=== PATIENT | male | born 1980 | race Caucasian/White ===

== ENCOUNTER 2022-02-20 09:37 | Outpatient (CLI) | payer MEDICAID, SELFPAY ==
[2022-02-20 13:48] LABS: Potassium* 5.2 mmol/L (3.6-5.1); Sodium* 140 mmol/L (135-149)
[2022-02-20 13:51] LABS: Calcium* 9.6 mg/dL (8.4-10.6); Carbon Dioxide* 32 mmol/L (20-32); Cholesterol* 140 mg/dL (90-199); Creatinine* 0.7 mg/dL (0.5-1.5); Estimated Glomerular Filt Rate 117 ml/min; Glucose* 103 mg/dL (60-115); Triglycerides* 54 mg/dL (40-149)
[2022-02-20 13:52] LABS: HDL Cholesterol* 68 mg/dL (>=40); LDL Cholesterol Calculated 61 mg/dL (<100)
[2022-02-20 15:28] LABS: HIV 1/2/P24 Combo Screen* Negative (Negative)
[2022-02-20 16:00] LABS: Chloride* 103 mmol/L (96-114)
[2022-02-20 16:03] LABS: Blood Urea Nitrogen* 12 mg/dL (5-24)
== END 2022-02-20 09:38 | disposition home or self-care (01) ==
PROVIDERS: PCP Family Medicine; Visit Provider Family Medicine
DX: Z00.00 Encounter for general adult medical examination without abnormal findings (principal); F98.8 Other specified behavioral and emotional disorders with onset usually occurring in childhood and adolescence; Z11.3 Encounter for screening for infections with a predominantly sexual mode of transmission
CPT/HCPCS: 80048; 80061; 86703

== ENCOUNTER 2023-11-05 07:32 | Outpatient (CLI) | payer MEDICAID, SELFPAY ==
--- NOTE | 2023-11-05 09:09 | W.ANESCHARGE ---
Anesthesia Charges Start Date/Time Anesthesia Start Date: 11/05/23 Anesthesia Start Time: 08:40 Stop Date/Time Anesthesia Stop Date: 11/05/23 Anesthesia Stop Time: 09:07
--- NOTE | 2023-11-05 11:04 | W.ANESCHARGE ---
Anesthesia Charges Start Date/Time Anesthesia Start Date: 11/05/23 Anesthesia Start Time: 08:40 Stop Date/Time Anesthesia Stop Date: 11/05/23 Anesthesia Stop Time: 09:07
== END 2023-11-05 07:33 | disposition home or self-care (01) ==
LOC: OP CLINIC 07:32
PROVIDERS: PCP Family Medicine; Visit Provider Internal Medicine
DX: Z12.11 Encounter for screening for malignant neoplasm of colon (principal); D12.5 Benign neoplasm of sigmoid colon; K57.30 Diverticulosis of large intestine without perforation or abscess without bleeding
CPT/HCPCS: 00811; 45380; 88305; J2704